=== PATIENT | female | born 2000 | race Two or more races ===

== ENCOUNTER 2018-06-11 15:49 | Emergency (ER) | payer OTHER ==
[~2018-06-11] VITALS: Ht 177.8 cm; Wt 70.3 kg
[2018-06-11] MEDS ORDERED: SYNTHROID50 MCG (16:22)
== END 2018-06-11 20:22 | disposition home or self-care (01) ==
LOC: ER 15:49
DX: L02.416 Cutaneous abscess of left lower limb (principal)